=== PATIENT | female | born 1965 | race Caucasian/White ===

== ENCOUNTER 2019-05-14 11:41 | Emergency (ER) | payer SELFPAY ==
--- NOTE | 2019-05-14 13:18 | RAD ---
Left shoulder 3 views: 05/14/2019 COMPARISON: None HISTORY: Fall, trauma, pain FINDINGS: There is narrowing of the left acromioclavicular interspace with undersurface osteophytosis . There is no widening of the coracoclavicular interspace. No displaced fracture or dislocation seen. IMPRESSION: No acute osseous abnormality.
== END 2019-05-14 13:42 | disposition home or self-care (01) ==
LOC: ERS 11:41
DX: S46.912A Strain of unspecified muscle, fascia and tendon at shoulder and upper arm level, left arm, initial encounter (principal); F17.210 Nicotine dependence, cigarettes, uncomplicated; W18.2XXA Fall in (into) shower or empty bathtub, initial encounter